=== PATIENT | male | born 1965 | race Caucasian/White ===

== ENCOUNTER 2017-05-20 15:00 | Inpatient (IN) ==
--- NOTE | 2017-05-20 15:10 | Internal Med History&Physical ---
Date of Encounter: 05/20/17 Time of Encounter: 15:06 Assessment and Plan (1) Lumbar spondylosis with myelopathy Current visit: No Status: Acute s/p Lumpectomy lumbar area. There is some residual weakness and evidence of drop foot. His dorsiflexion is absent on the right side where has much improved but weaker on the left side He planterflexion is also slightly weaker on the right side then on the left side . Other muscle groups are within normal limits in his strength . There is numbness on the right side more then left . Plan for rehab and support for drop foot as needed . Hopefully his function will improve . o (2) Diabetes mellitus Current visit: No Status: Acute Newly diagnosed . he was treated with prednisone . On sliding scale and if needed could be started on oral meds advised to lose some weight . Internal Medicine - H&P: HPI Admitted From: Hospital to Hospital Transfer (s/p lamenectomy) History of present illness: Mr. Sheikh is a 52 year old male who was transferred from [facility] where he had lumpectomy and was admitted for rehab . His problems started few weeks ago when he started having weakness in his ankle and feet and was unable to move his feet . he has hx of chronic back pain and had been hoping to get better with conservative treatment . he was noted to have acute weakness in both feet and h was unable to raise his feet planterflexion . At the present time expect for his pain at the surgicla site and still feeling weak especially more in his right leg he denies any other complains Past Med Surg Social Fam HX - Past Medical History Medical history: hypertension Psychiatric history: anxiety, depression, PTSD - Past Surgical History Surgical History: other - Social History Smoking Status: Never smoker Smokeless Tobacco Status: No (quit 1.5 years ago) Alcohol use: occasionally Drug use: none - Family History Mother Living Status: Hx Family Endocrine Disorder: Yes Internal Medicine - H&P: Meds Insulin LISPRO [HumaLOG] 0 units SQ HS vial 05/20/17 [Rx] Insulin LISPRO [HumaLOG] 0 units SQ TIDAC vial 05/20/17 [Rx] OxyCODONE Immed Rel [Roxicodone 5 MG] 5 mg PO Q4HR PRN 7 Days #21 tablet [Rx] 3 Allergy/AdvReac Type Severity Reaction Status Date / Time No Known Allergies Allergy Verified 05/06/17 20:12 All Systems PM: A 10-system review of systems was performed and is negative for pertinent findings except as documented above in the HPI. - Constitutional Constitutional: weakness, other, no anorexia, no chills, no excessive sweating, no fatigue, no falls, no lethargy, no malaise, no night sweats, no weight gain, no weight loss - EENT Eyes: no blurry vision, no change in vision, no diplopia, no discharge, no dry eye, no loss of peripheral vision, no loss of vision, no photophobia Nose, mouth and throat: no bleeding gums, no change in voice, no dry mouth, no dysphagia, no facial pain, no odynophagia, no sinus pressure, no sore throat, no throat swelling, no tongue swelling - Cardiovascular Cardiovascular ROS IM: no chest pain, no claudication, no diaphoresis, no dyspnea on exertion, no edema, no lightheadedness, no orthopnea, no palpitations , no paroxysmal nocturnal dyspnea, no syncope - Respiratory Respiratory: no cough, no dyspnea, no dyspnea on exertion, no wheezing, no stridor, no pain on inspiration, no chest congestion - Gastrointestinal Gastrointestinal: no abdominal pain, no belching, no constipation, no cramping, no diarrhea, no dyspepsia, no dysphagia, no heartburn, no hematemesis, no loose stools, no melena, no nausea, no vomiting - Genitourinary Genitourinary ROS male: no difficulty urinating, no dysuria, no flank pain, no penile discharge, no urinary frequency, no urinary hesitancy - Musculoskeletal Musculoskeletal ROS IM: back pain, muscle weakness, numbness, no arthralgias, no atrophy, no stiffness, no tingling Additional comments: numbness in his feet both right more then left - Neurological Neurological ROS: focal weakness, numbness, paresthesias, weakness, no behavioral changes, no burning sensations, no confusion, no dizziness, no headache(s), no loss of vision, no memory loss, no radicular pain, no restless legs, no vertigo Additional comments: right feet planterflexion decreased as compared to left side - Psychiatric Psychiatric: no anxiety, no hallucinations, no suicidal ideation - Endocrine Endocrine IM: no cold intolerance, no deeping of the voice - Constitutional General appearance: Present: cooperative, A&O X 3, pleasant, obese. Absent: mild distress - Head Head exam: Present: atraumatic - Eye Eye exam: Present: EOMI, PERRL. Absent: periorbital swelling, periorbital tenderness, conjuntiva pink Pupils: Present: PERRL - Neck Neck exam general surgery: Present: full ROM, supple. Absent: lymphadenopathy, tenderness, nuchal rigidity - Respiratory Respiratory exam: Present: CTAB. Absent: accessory muscle use, chest wall tenderness, respiratory distress, rhonchi, stridor, wheezes, tachypnea - Cardiovascular Cardiovascular exam: Present: RRR, +S1, +S2. Absent: irregular rhythm, JVD, systolic murmur, tachycardia - GI/Abdominal GI/Abdominal exam: Present: normal bowel sounds, soft. Absent: distended, firm , guarding, rebound, rigid, tenderness - Extremities Exam Extremities exam: Absent: joint swelling, mottling, pedal edema, tenderness - Back Exam Back exam: Absent: muscle spasm, rash noted, vertebral tenderness Additional comments: surgical scar clean , mild tenderness around incision otherwise no other areas of tenderness - Neurological Exam Neurological exam: Present: alert, CN II-XII intact, oriented X3, reflexes normal, strengths equal and symetr throughout. Absent: facial droop, speech deficit Additional comments: Upper motor function normal B and equal All muscle groups lower B 5/5 Foot Dorsiflexion flexion right 0/5 left 3/5 planter right side 3/5 left side 5/5 Toe movement both feet normal and equal sensory examination not done
[2017-05-20] MEDS ORDERED: Dextrose Gel 15 GM PO PRN ×2 (15:25)
[2017-05-20] MEDS ORDERED: D5% in Water 1,000 ML IVC PRN (15:25)
[2017-05-20] MEDS ORDERED: *HR* Dextrose 50 % in Water (Syg) 50 ML SYRINGE IVP PRN (15:25)
[2017-05-20] MEDS: *HR* OxyCODONE/APAP 5/325 TABLET PO PRN ×2 (15:37→20:41)
[2017-05-20] MEDS: Insulin LISPRO 300 UNITS/3 ML VIAL SQ SCH ×2 (16:27→20:42)
[2017-05-21] MEDS: *HR* OxyCODONE/APAP 5/325 TABLET PO PRN ×5 (01:18→21:50)
[2017-05-21] MEDS: *HR* Enoxaparin 40 MG/0.4 ML SYRINGE SQ SCH (05:49)
[2017-05-21 06:56] LABS: Basophils % 0.8 %; Eosinophils # 0.1 K/mcL (0.0-0.6); Eosinophils % 2.6 %; Hemoglobin 14.1 g/dL (12.9-16.9); Immature Granulocytes % 0.8 % (0-4); Lymphocytes # 2.1 K/mcL (0.6-4.6); Lymphocytes % 40.9 %; Mean Corpuscular HGB Conc 35.3 g/dL (31.6-35.5); Mean Corpuscular Hemoglobin 31.7 pg (28.0-33.3); Mean Corpuscular Volume 89.9 fL (83.0-100.0); Monocytes # 0.5 K/mcL (0.0-1.3); Monocytes % 9.4 %; Neutrophils # 2.3 K/mcL (1.6-8.9); Platelet Count 120 K/mcL (140-400); Red Blood Count 4.45 M/mcL (4.19-5.50); Red Cell Distribution Width 11.9 % (11.5-14.5); Segmented Neutrophils % 45.5 %
[2017-05-21 06:58] LABS: INR 1.1
[2017-05-21 07:01] LABS: Activated Partial Thrombo Time 30.9 Seconds (26.0-36.0)
[2017-05-21 07:34] LABS: BUN/Creatinine Ratio 15 (6-26); Blood Urea Nitrogen 13 mg/dL (6-20); Calcium 9.2 mg/dL (8.6-10.3); Carbon Dioxide 28 mEq/L (23-29); Chloride 101 mEq/L (98-107); Glucose 186 mg/dL (70-105); Osmolality,Calculated 283 (280-300); Potassium 4.1 mEq/L (3.5-5.1); Sodium 134 mEq/L (136-145); eGFR For African Americans > 60 (> 60); eGFR For Non-African Americans > 60 (> 60)
[2017-05-21] MEDS: Insulin LISPRO 300 UNITS/3 ML VIAL SQ SCH ×4 (07:55→21:50)
--- NOTE | 2017-05-21 12:20 | Internal Med Progress Note ---
Date of Encounter: 05/21/17 Time of Encounter: 12:18 - Assessment and plan (1) S/P laminectomy Current Visit: Yes Status: Acute Assessment and plan: improving with therapy. continue PT/OT. incision healing. continue percocet for pain. (2) Diabetes mellitus Current Visit: No Status: Acute Assessment and plan: controlled with current meds. continue to monitor FSBS. will adjust as necessary. 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 states pain is controlled with percocet. denies fever, chills, NVD. states bowels are moving as normal. - Constitutional Vitals: Temp Pulse Resp BP Pulse Ox 97.6 F 96 18 155/97 95 05/21/17 11:00 05/21/17 11:00 05/21/17 11:00 05/21/17 11:00 05/21/17 11:00 General appearance: Present: cooperative, A&O X 3, pleasant, obese. Absent: mild distress - Head Head exam: Present: atraumatic, normocephalic - Eye Eye exam: Present: PERRL, conjuntiva pink, sclera anicteric Pupils: Present: PERRL - Neck Neck exam general surgery: Present: supple, trachea midline. Absent: lymphadenopathy - Respiratory Respiratory exam: Present: CTAB. Absent: accessory muscle use, rales, rhonchi, wheezes - Cardiovascular Cardiovascular exam: Present: RRR, +S1, +S2. Absent: diastolic murmur, gallop, rubs, systolic murmur - GI/Abdominal GI/Abdominal exam: Present: normal bowel sounds, soft, no peritoneal signs. Absent: distended, tenderness - Extremities Exam Extremities exam: Present: warm, radial pulses palpable and symmetrical. Absent : calf tenderness, cyanotic, pedal edema - Incison Incision: Present: clean and dry, intact, approximated Comments: no sign of infection. - Neurological Exam Neurological exam: Present: CN II-XII intact, oriented X3, no focal deficits. Absent: pronater drift, facial droop, speech deficit - Skin Skin exam: Present: dry, intact Internal Medicine: Result - Labs CBC & Chem 7: 05/21/17 06:36 05/21/17 06:36 Labs: Short CBC 05/21/17 Range/Units 06:36 WBC 5.1 (4.3-11.1) K/mcL Hgb 14.1 (12.9-16.9) g/dL Hct 40.0 (37.5-50.1) % Plt Count 120 L (140-400) K/mcL Neutrophils # 2.3 (1.6-8.9) K/mcL BMP 05/21/17 06:36 Sodium 134 L Potassium 4.1 Chloride 101 Carbon Dioxide 28 BUN 13 Creatinine 0.84 Glucose 186 H Calcium 9.2 - ABG Interpretation ABG results: PT/INR, D-dimer PT 12.0 Seconds (9.4-12.1) 05/21/17 06:36 Consult Discharge Plan - Plan [facility]errals: [facility] [Primary Care Provider] -
[2017-05-21] MEDS ORDERED: *HR* Enoxaparin 40 MG/0.4 ML SYRINGE SQ SCH (15:33)
[2017-05-22] MEDS: *HR* Enoxaparin 40 MG/0.4 ML SYRINGE SQ SCH (04:55)
[2017-05-22] MEDS: *HR* OxyCODONE/APAP 5/325 TABLET PO PRN ×4 (04:55→22:38)
[2017-05-22] MEDS: Insulin LISPRO 300 UNITS/3 ML VIAL SQ SCH ×4 (09:06→22:20)
--- NOTE | 2017-05-22 13:33 | Internal Med Progress Note ---
Date of Encounter: 05/22/17 Time of Encounter: 13:31 - Assessment and plan (1) S/P laminectomy Current Visit: Yes Status: Acute Assessment and plan: improving with therapy. continue PT/OT. incision healing. continue percocet for pain. Plan to discharge tomorrow. Follow up with surgeon as scheduled. (2) Diabetes mellitus Current Visit: No Status: Acute Assessment and plan: controlled with current meds. continue to monitor FSBS. will adjust as necessary. 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 states pain is controlled with percocet. denies fever, chills, NVD. states bowels are moving as normal. Preparing for discharge tomorrow. Patient following log roll precautions for and out of bed. Patient mod independent with Walker. - Constitutional Vitals: Temp Pulse Resp BP Pulse Ox 97.4 F L 75 16 144/87 95 05/22/17 07:42 05/22/17 07:42 05/22/17 07:42 05/22/17 07:42 05/22/17 07:42 General appearance: Present: cooperative, A&O X 3, pleasant, obese. Absent: mild distress - Head Head exam: Present: atraumatic, normocephalic - Eye Eye exam: Present: PERRL, conjuntiva pink, sclera anicteric Pupils: Present: PERRL - Neck Neck exam general surgery: Present: supple, trachea midline. Absent: lymphadenopathy - Respiratory Respiratory exam: Present: CTAB. Absent: accessory muscle use, rales, rhonchi, wheezes - Cardiovascular Cardiovascular exam: Present: RRR, +S1, +S2. Absent: diastolic murmur, gallop, rubs, systolic murmur - GI/Abdominal GI/Abdominal exam: Present: normal bowel sounds, soft, no peritoneal signs. Absent: distended, tenderness - Extremities Exam Extremities exam: Present: warm, radial pulses palpable and symmetrical. Absent : calf tenderness, cyanotic, pedal edema - Incison Comments: Lumbar spine incision well approximated. No drainage. No sign of infection. - Neurological Exam Neurological exam: Present: CN II-XII intact, oriented X3, no focal deficits. Absent: pronater drift, facial droop, speech deficit - Skin Skin exam: Present: dry, intact Internal Medicine: Result - Labs CBC & Chem 7: 05/21/17 06:36 05/21/17 06:36 - ABG Interpretation ABG results: PT/INR, D-dimer PT 12.0 Seconds (9.4-12.1) 05/21/17 06:36 Consult Discharge Plan - Plan [facility]errals: [facility] [Primary Care Provider] -
[2017-05-23] MEDS: *HR* OxyCODONE/APAP 5/325 TABLET PO PRN ×2 (07:03→12:53)
[2017-05-23] MEDS: *HR* Enoxaparin 40 MG/0.4 ML SYRINGE SQ SCH (07:03)
[2017-05-23] MEDS: Insulin LISPRO 300 UNITS/3 ML VIAL SQ SCH ×3 (08:08→17:20)
[2017-05-23 08:14] VITALS: BP 145/88
--- NOTE | 2017-05-23 16:07 | Discharge Summary ---
Date of Encounter: 05/23/17 Time of Encounter: 16:01 - Discharge Diagnosis (1) S/P laminectomy Priority: Primary Status: Acute Comments: Surgical incision appears healthy and intact. Patient continues to have slight weakness on right dorsiflexion, but states that he believes it has been improving. Patient states she continues to have some paresthesias to the right lateral leg and complains of right hip radicular pain. Patient continues physical therapy 1 her home and to continue with current medications. (2) Impaired gait Priority: Secondary Status: Acute Comments: Patient continues to be a risk for fall due to impaired gait secondary to right foot drop. Patient to continue use of walker when discharged home. Patient to continue with physical therapy after discharge. (3) Diabetes mellitus Priority: Secondary Status: Acute Comments: Patients glucose continues to remain 150-200. Patient states no history of DM. We will discharge patient to home without medications for DM. Patient instructed to check blood sugars twice a day over the next 2 weeks and if any elevations greater than 150, to notify PCP at the [place]. 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 Sheikh is a 52 year old male Was admitted hospital for a lumbar laminectomy. Patient states he had radicular symptoms to his right leg that included pain that radiated down the leg and paresthesias to the right lateral leg. Patient also noted to have right dorsiflexion weakness. Patient was sent to facility for further rehabilitation and has progressed well with physical therapy. Patient ambulates with the use of assisted device and states that he believes that his dorsiflexion on his right foot has improved since surgery. Patient to be discharged home with current medications. Patient states that his pain has been well-controlled with current medications. Patient had elevated glucose during his stay of facility which has been 150-200. Patient states no history of diabetes but had just completed a round of steroids. - Time Spent with Patient Total time spent providing and/or coordinating discharge services: - Discharge Medications Home Medications: OxyCODONE Immed Rel [Roxicodone 5 MG] 5 mg PO Q4HR PRN 7 Days #21 tablet [Rx] Allergies/Adverse Reactions: 3 Allergy/AdvReac Type Severity Reaction Status Date / Time No Known Allergies Allergy Verified 05/06/17 20:12 Date of admission: 05/20/17 15:02 Primary care physician: [facility] Consults: 05/20/17 19:40 Consult to Occupational Therapy [CONS] Routine Comment: Evaluate, develop and implement POC Reason for Consult: evaluate and treat Does patient have active BEDREST order?: No Is patient medically & hemodynamically stable?: No Patient assessed for mobility or mobilized this visit?: Yes Consult to Physical Therapy [CONS] Routine Comment: Evaluate, develop and implement POC Reason for Consult: evaluate and treat Does patient have active BEDREST order?: No Is patient medically & hemodynamically stable?: No Patient assessed for mobility or mobilized this visit?: Yes Consult to Employee Welfare Manager [CONS] Routine Reason for SW Consult: discharge planning Discharging clinician: Usama Shi Anticipated date of discharge: 05/23/17 - Constitutional Vitals: Temp Pulse Resp BP Pulse Ox 97.5 F L 91 18 145/88 94 05/23/17 08:00 05/23/17 08:00 05/23/17 08:00 05/23/17 08:00 05/23/17 08:00 General appearance: Present: cooperative, A&O X 3, pleasant, obese. Absent: mild distress - Head Head exam: Present: atraumatic, normocephalic - Eye Eye exam: Present: PERRL, conjuntiva pink, sclera anicteric Pupils: Present: PERRL - Neck Neck exam general surgery: Present: supple, trachea midline. Absent: lymphadenopathy - Respiratory Respiratory exam: Present: CTAB. Absent: accessory muscle use, rales, rhonchi, wheezes - Cardiovascular Cardiovascular exam: Present: RRR, +S1, +S2. Absent: diastolic murmur, gallop, rubs, systolic murmur - GI/Abdominal GI/Abdominal exam: Present: normal bowel sounds, soft, no peritoneal signs. Absent: distended, tenderness - Extremities Exam Extremities exam: Present: warm, radial pulses palpable and symmetrical. Absent : calf tenderness, cyanotic, pedal edema - Neurological Exam Neurological exam: Present: CN II-XII intact, oriented X3. Absent: pronater drift, facial droop, speech deficit Additional comments: Lumbar surgical incision appears dry and intact. Noted slight weakness on right dorsiflexion 4/5 - Skin Skin exam: Present: dry, intact - Patient Status Disposition: Home Health Service Condition: Good Functional capacity at discharge: uses cane/walker Overall status at discharge: patient is progressing back to baseline - Discharge Instructions [facility]: [facility] [Primary Care Provider[facility] - - Diet and Activity Activity: ambulate only with your walker, increase activity as tolerated, resume usual activities as tolerated Diet: advance to your usual diet
== END 2017-05-23 17:40 | disposition home health service (06) | DRG 561 ==
LOC: INPGRE 15:02